=== PATIENT | male | born 1975 | race Hispanic/Latino ===

== ENCOUNTER 2017-01-18 05:26 | Emergency (ER) | payer OTHER ==
[~2017-01-18] VITALS: Ht 170.2 cm; Wt 108.9 kg
[2017-01-18] MEDS ORDERED: LORazepam Inj 2mg/ml 1ml IV ONE (06:00)
[2017-01-18] MEDS ORDERED: Tetanus/Diptheria/Pertussis Vaccine 0.5ml Syr IM ONE (06:00)
[2017-01-18] MEDS ORDERED: Thiamine HCl 100 MG in D5W 55 ML IVPB SCH (06:00)
[2017-01-18 06:05] VITALS: BP 132/84
--- NOTE | 2017-01-18 06:07 | Emergency Room Report ---
History of Present Illness General Chief Complaint: Alcohol Intoxication Source: Patient, EMS (Aman Crawford M.D.) Present Illness HPI Patient presents with history of alcohol abuse. He stopped drinking several days ago after he fell and hit his right leg. He denies any loss of consciousness. He states his stools have been dark. He's been nauseated but hasn't been vomiting. From falling he complains about headache, right leg pain and chest pain. The patient drinks daily both beer and rum. He doesn't remember the last time he was sober for 2 weeks. This is shakes. He wants to stop drinking he does is a 5-year-old and causing problem with his . No fever, abdominal pain, dysuria, rashes, change in vision. Tearful about abuse. (Aman Crawford M.D.) Allergies: Coded Allergies: No Known Allergies (Unverified , 01/18/17) Patient History Past Medical History: see triage record Social History: Reports: alcohol use Social History Narrative Reviewed Nursing Documentation: PMH: Agreed, PSxH: Agreed (Aman Crawford M.D.) Nursing Documentation-PMH Past Medical History: No History, Except For Hx Hypertension: Yes Hx Diabetes: Yes Hx Seizures: Yes (Aman Crawford M.D.) Review of Systems All Other Systems: negative except mentioned in HPI (Aman Crawford M.D.) Physical Exam Vital Signs Date Time Temp Pulse Resp B/P Pulse Ox O2 Delivery O2 Flow Rate FiO2 01/18/17 05:26 99.1 110 14 132/84 98 Room Air Sp02 EP Interpretation: reviewed, normal General Appearance: no apparent distress, alert, obese Eyes: bilateral eye PERRL, bilateral eye scleral icterus ENT: moist mucus membranes Respiratory: lungs clear, normal breath sounds, other - R chest pain Cardiovascular #1: regular rate, rhythm Gastrointestinal: non tender, soft, distended Rectal: heme positive stool - brown Musculoskeletal: digits/nails normal, gait/station normal, tender - R lateral lower leg Neurologic: oriented x3, motor strength/tone normal, DTRs symmetric, speech normal, other - tremulous Psychiatric: depressed affect, anxious Skin: warm/dry, other - no bruises (Aman Crawford M.D.) Medical Decision Making Diagnostic Impression: Primary Impression: Alcohol withdrawal Qualified Codes: F10.239 - Alcohol dependence with withdrawal, unspecified Additional Impressions: GI bleed Qualified Codes: K92.2 - Gastrointestinal hemorrhage, unspecified Fall Qualified Codes: W19.XXXA - Unspecified fall, initial encounter Contusion ER Course Patient with history of alcohol abuse complaining about pain after falling and tremulousness. Differential includes alcohol withdrawal, early delirium tremens , headache, or electrolyte abnormality, GI bleed, cirrhosis, alcoholic hepatitis amongst others. Evaluation with labs including ammonia CT of the head chest x-ray. He be treated with IV hydration, Ativan and thiamine. Labs significant for normal WBC, elevated CK and H/H, and + BAL. CT and xrays negative. Patient improved with treatment but still tachycardic. Less tremulous. Needs admission for observation and treatment for alcohol withdrawal with possible risk for DTs. Labs Test 01/18/17 06:10 01/18/17 06:20 Urine Color Yellow Urine Appearance Clear Urine pH 5 (4.5-8.0) Urine Specific [place] 1.025 (1.005-1.035) Urine Protein 2+ (NEGATIVE) Urine Glucose (UA) 1+ (NEGATIVE) Urine Ketones 4+ (NEGATIVE) Urine Occult Blood 3+ (NEGATIVE) Urine Nitrite Negative (NEGATIVE) Urine Bilirubin Negative (NEGATIVE) Urine Urobilinogen 1 MG/DL (0.0-1.0) Urine Leukocyte Esterase Negative (NEGATIVE) Urine RBC 2-4 /HPF (0 - 0) Urine WBC 0-2 /HPF (0 - 0) Urine Squamous Epithelial Cells Occasional /LPF Urine Amorphous Sediment Few /LPF (NONE) Urine Bacteria Few /HPF (NONE) Urine Mucus Moderate /LPF (NONE/OCC) Urine Opiates Screen Negative (NEGATIVE) Urine Barbiturates Screen Negative (NEGATIVE) Phencyclidine (PCP) Screen Negative (NEGATIVE) Urine Amphetamines Screen Negative (NEGATIVE) Urine Benzodiazepines Screen Negative (NEGATIVE) Urine Cocaine Screen Negative (NEGATIVE) Urine Marijuana (THC) Screen Negative (NEGATIVE) White Blood Count 9.4 K/UL (4.8-10.8) Red Blood Count 4.26 M/UL (4.70-6.10) Hemoglobin 14.2 G/DL (14.2-18.0) Hematocrit 40.7 % (42.0-52.0) Mean Corpuscular Volume 95 FL (80-99) Mean Corpuscular Hemoglobin 33.2 PG (27.0-31.0) Mean Corpuscular Hemoglobin Concent 34.8 G/DL (32.0-36.0) Red Cell Distribution Width 13.6 % (11.6-14.8) Platelet Count 167 K/UL (150-450) Mean Platelet Volume 9.1 FL (6.5-10.1) Neutrophils (%) (Auto) 71.2 % (45.0-75.0) Lymphocytes (%) (Auto) 21.7 % (20.0-45.0) Monocytes (%) (Auto) 4.9 % (1.0-10.0) Eosinophils (%) (Auto) 1.6 % (0.0-3.0) Basophils (%) (Auto) 0.6 % (0.0-2.0) Sodium Level 138 mEQ/L (135-145) Potassium Level 3.6 mEQ/L (3.4-4.9) Chloride Level 93 mEQ/L (98-107) Carbon Dioxide Level 24 mEQ/L (20-30) Anion Gap 21 (5-15) Blood Urea Nitrogen 13 mg/dL (7-23) Creatinine 0.5 mg/dL (0.7-1.2) Estimat Glomerular Filtration Rate > 60 mL/min (>60) Glucose Level 109 mg/dL (74-106) Calcium Level 8.8 mg/dL (8.6-10.2) Total Bilirubin 0.6 mg/dL (0.0-1.2) Aspartate Amino Transf (AST/SGOT) 49 U/L (5-40) Alanine Aminotransferase (ALT/SGPT) 27 U/L (3-41) Alkaline Phosphatase 123 U/L (40-129) Ammonia 12 umol/L (16-60) Total Creatine Kinase 522 U/L (38-174) Troponin I < 0.30 ng/mL (<=0.30) Total Protein 7.7 g/dL (6.6-8.7) Albumin 4.4 g/dL (3.5-5.2) Globulin 3.3 g/dL Albumin/Globulin Ratio 1.3 (1.0-2.7) Salicylates Level < 1 mg/dL (10-30) Acetaminophen Level < 10 ug/mL (10-30) Serum Alcohol 106 mg/dL (Aman Crawford M.D.) ER Course CT the head read by radiology showed no midline shift hemorrhage or evidence of acute cortical infarction. Ventricle size was normal. Patient was given IV magnesium. The patient was noted to be tachycardic with heart rates intermittently elevating up to the 160s. The laboratory testing showed a normal potassium as well as adequate hemoglobin. The patient was noted to have intermittent bouts of tachycardia with heart rate of 180. The patient was given IV magnesium for prolonged QTC the patient was given IV metoprolol the as well as IV Ativan. Dr. Parmar was contacted for inpatient management due to complexity of medical condition and [facility] contracted physician. Patient was noted to have improvement his mental status as well as tachycardia. Patient subsequently stated he felt better and wanted to leave. Patient was advised to stay in the hospital for further cardiac monitoring as well as further medications. The patient was advised risk benefits alternatives of leaving AGAINST MEDICAL ADVICE and he indicated understanding and all questions are answered patient still continued want to leave and signed AGAINST MEDICAL ADVICE. Despite risks including but not limited to disability and worsening of current lifestyle. The patient appears to have capacity for AMA. All questions are answered. Labs Test 01/18/17 06:10 01/18/17 06:20 Urine Color Yellow Urine Appearance Clear Urine pH 5 (4.5-8.0) Urine Specific [place] 1.025 (1.005-1.035) Urine Protein 2+ (NEGATIVE) Urine Glucose (UA) 1+ (NEGATIVE) Urine Ketones 4+ (NEGATIVE) Urine Occult Blood 3+ (NEGATIVE) Urine Nitrite Negative (NEGATIVE) Urine Bilirubin Negative (NEGATIVE) Urine Urobilinogen 1 MG/DL (0.0-1.0) Urine Leukocyte Esterase Negative (NEGATIVE) Urine RBC 2-4 /HPF (0 - 0) Urine WBC 0-2 /HPF (0 - 0) Urine Squamous Epithelial Cells Occasional /LPF Urine Amorphous Sediment Few /LPF (NONE) Urine Bacteria Few /HPF (NONE) Urine Mucus Moderate /LPF (NONE/OCC) Urine Opiates Screen Negative (NEGATIVE) Urine Barbiturates Screen Negative (NEGATIVE) Phencyclidine (PCP) Screen Negative (NEGATIVE) Urine Amphetamines Screen Negative (NEGATIVE) Urine Benzodiazepines Screen Negative (NEGATIVE) Urine Cocaine Screen Negative (NEGATIVE) Urine Marijuana (THC) Screen Negative (NEGATIVE) White Blood Count 9.4 K/UL (4.8-10.8) Red Blood Count 4.26 M/UL (4.70-6.10) Hemoglobin 14.2 G/DL (14.2-18.0) Hematocrit 40.7 % (42.0-52.0) Mean Corpuscular Volume 95 FL (80-99) Mean Corpuscular Hemoglobin 33.2 PG (27.0-31.0) Mean Corpuscular Hemoglobin Concent 34.8 G/DL (32.0-36.0) Red Cell Distribution Width 13.6 % (11.6-14.8) Platelet Count 167 K/UL (150-450) Mean Platelet Volume 9.1 FL (6.5-10.1) Neutrophils (%) (Auto) 71.2 % (45.0-75.0) Lymphocytes (%) (Auto) 21.7 % (20.0-45.0) Monocytes (%) (Auto) 4.9 % (1.0-10.0) Eosinophils (%) (Auto) 1.6 % (0.0-3.0) Basophils (%) (Auto) 0.6 % (0.0-2.0) Sodium Level 138 mEQ/L (135-145) Potassium Level 3.6 mEQ/L (3.4-4.9) Chloride Level 93 mEQ/L (98-107) Carbon Dioxide Level 24 mEQ/L (20-30) Anion Gap 21 (5-15) Blood Urea Nitrogen 13 mg/dL (7-23) Creatinine 0.5 mg/dL (0.7-1.2) Estimat Glomerular Filtration Rate > 60 mL/min (>60) Glucose Level 109 mg/dL (74-106) Calcium Level 8.8 mg/dL (8.6-10.2) Total Bilirubin 0.6 mg/dL (0.0-1.2) Aspartate Amino Transf (AST/SGOT) 49 U/L (5-40) Alanine Aminotransferase (ALT/SGPT) 27 U/L (3-41) Alkaline Phosphatase 123 U/L (40-129) Ammonia 12 umol/L (16-60) Total Creatine Kinase 522 U/L (38-174) Troponin I < 0.30 ng/mL (<=0.30) Total Protein 7.7 g/dL (6.6-8.7) Albumin 4.4 g/dL (3.5-5.2) Globulin 3.3 g/dL Albumin/Globulin Ratio 1.3 (1.0-2.7) Salicylates Level < 1 mg/dL (10-30) Acetaminophen Level < 10 ug/mL (10-30) Serum Alcohol 106 mg/dL (Ty Butt) EKG Diagnostic Results Rate: tachycardiac ST Segments: no acute changes (Aman Crawford M.D.) Rhythm Strip Diag. Results EP Interpretation: yes Rhythm: no PVC's, no ectopy, other - ST (Aman Crawford M.D.) Chest X-Ray Diagnostic Results Chest X-Ray Diagnostic Results : Chest X-Ray Ordered: Yes # of Views/Limited/Complete: 1 View Indication: Chest Pain EP Interpretation: Yes Interpretation: no consolidation, no effusion, no pneumothorax, no acute cardiopulmonary disease Impression: No acute disease Interpreting ER Provider: Electronic sign Aman Crawford MD (Aman Crawford M.D.) CT/MRI/US Diagnostic Results CT/MRI/US Diagnostic Results : Imaging Test Ordered: head Impression no bleed, mass, fx (Aman Crawford M.D.) Last Vital Signs Date Time Temp Pulse Resp B/P Pulse Ox O2 Delivery O2 Flow Rate FiO2 01/18/17 10:02 92 24 120/79 95 Room Air 01/18/17 10:01 97.6 Status: improved (Aman Crawford M.D.) Status: improved (Ty Butt) Disposition: AGAINST MEDICAL ADVICE Condition: Serious Aman Crawford M.D. Jan 18, 2017 06:07 Ty Butt Jan 18, 2017 08:17
[2017-01-18] MEDS ORDERED: Pantoprazole Inj IVP ONE (06:15)
[2017-01-18 06:21] LABS: APPEARANCE,URINE CLEAR; KETONES,URINE 4+ (NEGATIVE); LEUKOCYTE ESTERASE ,URINE NEGATIVE (NEGATIVE); NITRITE,URINE NEGATIVE (NEGATIVE); PH,URINE 5 (4.5-8.0); PROTEIN,URINE 2+ (NEGATIVE); UROBILINOGEN,URINE 1 MG/DL (0.0-1.0)
[2017-01-18 06:35] LABS: AMORPHOUS SEDIMENT,UR FEW /LPF; BACTERIA,URINE FEW /HPF; SQUAMOUS EPITHELIAL CELL,UR OCCASIONAL /LPF (NONE/OCC); WBC,URINE 0-2 /HPF (0 - 0)
[2017-01-18 06:36] LABS: MUCUS,URINE MODERATE /LPF (NONE/OCC)
[2017-01-18] MEDS ORDERED: Thiamine HCl 100mg/ml 2 ml Inj ONE (06:42)
[2017-01-18 06:47] LABS: AMMONIA 12 umol/L (16-60)
[2017-01-18 06:49] LABS: ACETAMINOPHEN < 10 ug/mL (10-30); ALANINE AMINOTRANSFERASE 27 U/L (3-41); ALBUMIN/GLOBULIN RATIO 1.3 (1.0-2.7); ALCOHOL 106 mg/dL; ANION GAP 21 (5-15); ASPARTATE AMINO TRANSFERASE 49 U/L (5-40); CALCIUM 8.8 mg/dL (8.6-10.2); CARBON DIOXIDE 24 mEQ/L (20-30); CHLORIDE 93 mEQ/L (98-107); CREATININE 0.5 mg/dL (0.7-1.2); GLOMERULAR FILTRATION RATE > 60 mL/min (>60); HEMOLYSIS 5; POTASSIUM 3.6 mEQ/L (3.4-4.9); SODIUM 138 mEQ/L (135-145); TOTAL PROTEIN 7.7 g/dL (6.6-8.7); TROPONIN I < 0.30 ng/mL (<=0.30)
[2017-01-18 06:59] LABS: BASOPHILS % (AUTO) 0.6 % (0.0-2.0); EOSINOPHILS % (AUTO) 1.6 % (0.0-3.0); LYMPHOCYTES % (AUTO) 21.7 % (20.0-45.0); MEAN CORPUSCULAR HEMOGLOBIN 33.2 PG (27.0-31.0); MEAN CORPUSCULAR HGB CONC 34.8 G/DL (32.0-36.0); MEAN CORPUSCULAR VOLUME 95 FL (80-99); MEAN PLATELET VOLUME 9.1 FL (6.5-10.1); MONOCYTES % (AUTO) 4.9 % (1.0-10.0); NEUTROPHILS % (AUTO) 71.2 % (45.0-75.0); PLATELET COUNT 167 K/UL (150-450); RED BLOOD COUNT 4.26 M/UL (4.70-6.10); RED CELL DISTRIBUTION WIDTH 13.6 % (11.6-14.8); WHITE BLOOD COUNT 9.4 K/UL (4.8-10.8)
[2017-01-18 08:00] VITALS: BP 90/63
[2017-01-18 08:30] VITALS: BP 101/71
--- NOTE | 2017-01-18 08:33 | Diagnostic Imaging Report ---
Indication: H/A Technique: Continuous helical CT scanning of the head was performed without intravenous contrast material. Axial and coronal 5 mm sections were generated. Radiation dose was minimized using automated exposure control Dose: Total Dose Length Product - DLP [address] Dose Index - CTDIvol(s) 70.38 mGy. Comparison: 01/09/2010 Findings: The ventricular system is normal in size and configuration. There is no shift of midline structures. No abnormal extra-axial fluid collections are noted. There is no evidence of intracerebral bleeding. No other abnormal high or low density areas are noted within the brain. There is right maxillary sinus disease. The calvarium is intact. The mastoids are clear. Is no significant interim change Impression: Negative for acute intracranial bleed or mass effect Sinus disease This agrees with the preliminary interpretation provided overnight by [facility] teleradiology service. The CT scanner at [facility] is accredited by the [employer] and the scans are performed using protocols designed to limit radiation exposure to as low as reasonably achievable to attain images of sufficient resolution adequate for diagnostic evaluation.
[2017-01-18 08:44] VITALS: BP 120/69
[2017-01-18] MEDS ORDERED: Metoprolol 5mg/5ml Inj IVP ONE (08:45)
[2017-01-18 10:01] VITALS: BP 120/79
[2017-01-18 10:02] VITALS: BP 120/79
--- NOTE | 2017-01-18 16:01 | Cardiology Report ---
APPROVED REPORT EKG Measurement Heart [id number] Sinus tachycardia Cannot rule out Anterior infarct, age undetermined Abnormal ECG
== END 2017-01-18 10:00 | disposition left against medical advice (07) ==
LOC: EDBD 05:26 → EMR 06:55 → EDBEDREQ 07:37 → EMR 10:00
DX: F10.239 Alcohol dependence with withdrawal, unspecified (principal); K92.2 Gastrointestinal hemorrhage, unspecified; S80.11XA Contusion of right lower leg, initial encounter; W19.XXXA Unspecified fall, initial encounter; Y92.89 Other specified places as the place of occurrence of the external cause; Z23 Encounter for immunization; I10 Essential (primary) hypertension; E11.9 Type 2 diabetes mellitus without complications; R51 Headache; R00.0 Tachycardia, unspecified; R07.9 Chest pain, unspecified
CPT/HCPCS: 36415; 70450; 71010; 80053; 80300; 80329; 81003; 82140; 82550; 82962; 84484; 85025; 86900; 86901; 90471; 90715; 93005; 96361; 96372; 96374; 96375; 99284; C9113; 96360

== ENCOUNTER → 2018-08-07 | Emergency (ER) | payer OTHER ==
[~2018-08-07] VITALS: Ht 172.7 cm; Wt 72.6 kg
[2018-08-07 17:10] VITALS: BP 148/80
--- NOTE | 2018-08-07 17:10 | NUR ---
ED Nurse Note: pt brought by RA from home due to feeling depressed for 1 week. pt started c/o intermittent cp. ekg done at the chair. AAO x4. respirations even and non-labored noted. skin warm to touch. no open wound noted. pt denies SI/HI. per pt, drank alcohol today. will wait for the further order.
[2018-08-07 18:09] VITALS: BP 148/80
--- NOTE | 2018-08-07 18:10 | NUR ---
ED Nurse Note: pt dary.
--- NOTE | 2018-08-07 22:29 | Emergency Room Report ---
History of Present Illness General Chief Complaint: Chest Pain Source: Patient Present Illness HPI 43-year-old male patient presents the ER brought in by EMS for EtOH and depression. On exam patient states that he is not depressed. Denies thoughts of hurting himself or others. Patient is not on a hold. Denies fever, chest pain, shortness of breath abdominal pain. Patient denies acute complaints. Patient states that he would like to have a chest x-ray done and a general workup done. States that he has not seen his primary care provider and would like general exam performed. Denies dysuria, hematuria. Denies EtOH use. Denies drinking or drug use. Denies past medical history. Denies other aggravating or relieving factors. Contrary to triage report, patient does not report chest pain. States that he drank alcohol yesterday. Allergies: Coded Allergies: No Known Allergies (Unverified , 01/18/17) Patient History Past Medical History: see triage record Reviewed Nursing Documentation: PMH: Agreed; PSxH: Agreed Nursing Documentation-PMH Past Medical History: No Stated History Hx Hypertension: Yes Hx Diabetes: Yes Hx Seizures: Yes Review of Systems All Other Systems: negative except mentioned in HPI Physical Exam Vital Signs Date Time Temp Pulse Resp B/P (MAP) Pulse Ox O2 Delivery O2 Flow Rate FiO2 08/07/18 16:53 98.2 78 16 148/80 98 Room Air Sp02 EP Interpretation: reviewed, normal General Appearance: well appearing, no apparent distress, alert, GCS 15, non- toxic Head: normocephalic, atraumatic Eyes: bilateral eye normal inspection, bilateral eye PERRL ENT: hearing grossly normal, normal pharynx, no angioedema, normal voice, uvula midline, moist mucus membranes Neck: full range of motion, no meningismus, no bony tend Respiratory: lungs clear, normal breath sounds, no rhonchi, no respiratory distress, no accessory muscle use, no wheezing, speaking full sentences Cardiovascular #1: regular rate, rhythm, no edema Gastrointestinal: non tender, soft, no mass, non-distended, no guarding, no rebound Genitourinary: no CVA tenderness Musculoskeletal: back normal, digits/nails normal, gait/station normal, normal range of motion, non-tender Neurologic: alert, oriented x3, responsive, motor strength/tone normal, sensory intact Psychiatric: mood/affect normal Skin: no rash Lymphatic: no adenopathy Medical Decision Making PA Attestation Dr. Arita is my supervising Physician whom patient management has been discussed with. Diagnostic Impression: Primary Impression: Encounter for examination of hearing without abnormal findings ER Course Pt. presents to the ED c/o EtOH and depression per EMS,. Patient has no acute complaints. Ddx considered but are not limited to depression, anxiety, pneumonia, alcohol use, drug use. Vital signs: are WNL, pt. is afebrile ER COURSE: Physical exam benign, lungs clear to auscultation, no abdominal tenderness palpation. Patient requesting full lab and workup being performed however patient denies acute complaints. Informed patient that he needs to follow-up with his primary care provider and have workup performed at that time. Do not believe patient is danger to himself or others at this time. Able to ambulate independently without difficulty. Patient continues to indicate his right upper chest on exam however states he does not have any pain there but would like a chest x-ray. Chest x-ray shows no acute disease per the preliminary reading. Informed by nurse patient continually asking to leave the ER. Patient is medically cleared. Patient eloped. Prior to chest x-ray being read patient eloped. - Please note that this Emergency Department Report was dictated using [employer] attendant technology software, occasionally this can lead to erroneous entry secondary to interpretation by the dictation equipment. Chest X-Ray Diagnostic Results Chest X-Ray Diagnostic Results : Chest X-Ray Ordered: Yes # of Views/Limited/Complete: 1 View Indication: Chest Pain EP Interpretation: Yes PA Xray: Interpretation reviewed, by supervising MD, and agrees with findings. Interpretation: no consolidation, no effusion, no pneumothorax, no acute cardiopulmonary disease Impression: No acute disease PA Scribe Text Saurbah Jaffe PA-C Last Vital Signs Date Time Temp Pulse Resp B/P (MAP) Pulse Ox O2 Delivery O2 Flow Rate FiO2 08/07/18 18:09 98.2 78 16 148/80 98 Room Air Disposition: ELOPED Referrals: NON PHYSICIAN (PCP) Henrry Jaffe Aug 07, 2018 22:29
--- NOTE | 2018-08-08 11:01 | Diagnostic Imaging Report ---
Indication: Sprain Comparison: 01/18/2017 A single view chest radiograph was obtained. Findings: Cardiomediastinal appearance is within normal limits for age. The lungs are clear. Pulmonary vascularity is appropriate. The diaphragmatic contour is smooth and costophrenic angles are sharp. No pleural effusions are identified. The bones are unremarkable. Impression: No acute findings
== END | disposition left against medical advice (07) ==
LOC: EDUNIT# 16:51 → EDBD 16:59 → EMR 18:45
DX: R07.9 Chest pain, unspecified (principal); I10 Essential (primary) hypertension; E11.9 Type 2 diabetes mellitus without complications; F32.9 Major depressive disorder, single episode, unspecified
CPT/HCPCS: 71045; 99282